=== PATIENT | male | born 1950 | race Caucasian/White ===

== ENCOUNTER → 2017-03-23 | Outpatient (CLI) | payer MEDICARE, BC ==
--- NOTE | ~2017-03-23 | MR2 ---
[facility] A Service of [facility] & [facility] RADIOLOGY TEXT RESULTS PATIENT: NY DIXON LOCATION: [facility] : [birth year] UNIT #: [id number] AGE: [address]: Chon Lai MD SEX: M ORDER DR: [id number] [address] [address] [id number] O MR#: [id number] Acc #: [id number] NAME: NY DIXON : 1950 SEX: M STUDY DATE/TIME: 03/23/2017 8:55 UNIT: [facility] ROOM: STUDY DESCRIPTION: MR Abdomen WWo Cont Attending Physician: Chon Lai M.D. Referring Physician: Chon Lai M.D. Ordering Physician: Chon Lai M.D. Primary Care Physician: Vipul Mora M.D. MRI CENTER REPORT This report is preliminary unless electronic signature is present. EXAM MRI abdomen without and with contrast 03/23/2017 INDICATIONS 67-year-old male with a history of renal stones. Lymphoma and renal malignancy status post partial left nephrectomy. Status post chemotherapy in 2004. Renal cysts and hematuria. Reportedly a recent ultrasound or the patient's most recent ultrasound "showed change in cyst". TECHNIQUE Multiplanar, multisequence MRI of the abdomen was performed before and after the uneventful administration of 20 mL MultiHance contrast material. Correlation is made with CT abdomen pelvis 10/16/2013 FINDINGS MRI ABDOMEN. Included lung bases are clear. There is no pleural effusion or pericardial effusion. Aorta demonstrates no aneurysm or dissection. T1 signal in the pancreas is maintained. No evidence of acute pancreatitis. Spleen measures 10.1 cm craniocaudal in the liver, 16.9 cm. No pancreas divisum. Intra and extrahepatic biliary tree otherwise unremarkable. No evidence of cholelithiasis. There is an at least [id number] fatty infiltration of the liver. There are tiny cysts within the spleen. Adrenal glands unremarkable. Pancreas demonstrates no enhancing mass or ductal dilatation. Gallbladder otherwise unremarkable. Liver demonstrates a tiny cyst in the right hepatic lobe measuring only about 4 mm. No hydronephrosis of either kidney. There are simple cysts in the right STS. [facility] A Service of [facility] RADIOLOGY TEXT RESULTS PATIENT: NY DIXON LOCATION: [facility] : [birth year] UNIT #: [id number] AGE: [address]: Chon Lai MD SEX: M ORDER DR: kidney the largest of which measures 12 mm in the anterior slr-hh-nalhi pole. There are postop changes of partial left nephrectomy. There is a proteinaceous or hemorrhagic cyst in the upper pole left kidney measuring 14 mm not significantly changed. There are simple cysts in the left kidney as well. In the posterior mid pole left kidney there is redemonstration of a partially exophytic cyst now measuring 16 mm previously 15 mm on the [address] CT. It has proteinaceous debris or blood products within it on T1 noncontrast images. Following contrast administration, there is minimal if any subjective enhancement. Objectively similar to the prior CT, MRI demonstrates some probable subtle objective enhancement. However, stability of this lesion in terms of size over greater than 3 years would favor a benign etiology. Continued attention on followup is however recommended. There are additional tiny 5 mm or less cysts in the left kidney. The largest simple cyst in the left kidney is in the anterior midpole measuring 15 mm essentially unchanged. There is no new adenopathy. Marrow signal within normal limits. IMPRESSION 1. The partially exophytic [id number] pole left renal mass is unchanged in terms of size dating back to 2013. It once again demonstrates equivocal to mild enhancement similar to the prior CT and therefore is technically indeterminate although stability over greater than 3 years would favor a benign etiology. Continued attention on followup is recommended to document stability. 2. There are benign simple and complicated cysts in both kidneys as described with reference measurements above in the body of the report 3. Evidence of partial left nephrectomy and cortical scarring in the left kidney. No new adenopathy. 4. Fatty infiltration of the liver. 5. Hepatic and renal cysts. Dictated by... Devin Gaviria M.D. THIS IS AN ELECTRONICALLY VERIFIED REPORT Devin Gaviria M.D. at 03/26/2017 4:32 PM CORTNEY/mendez TD: 03/26/2017 11:10 JOB #: [id number] MRI CENTER REPORT Page 1 of 1
== END | disposition home or self-care (01) ==
LOC: SMRI 08:29
DX: C64.9 Malignant neoplasm of unspecified kidney, except renal pelvis (principal); N28.1 Cyst of kidney, acquired; N28.89 Other specified disorders of kidney and ureter; K76.0 Fatty (change of) liver, not elsewhere classified; K76.89 Other specified diseases of liver; Z90.5 Acquired absence of kidney
CPT/HCPCS: 74183; A9581